=== PATIENT | female | born 1965 | race American Indian/Alaskan Native ===

== ENCOUNTER 2017-03-30 13:53 | Emergency (ER) | payer OTHER ==
[2017-03-30 13:59] VITALS: RESP 18; TEMP 98.7; BMI 36.2
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
[2017-03-30 16:36] VITALS: BP 123/75; PULSE 64; O2SAT 98
== END 2017-03-30 17:15 | disposition home or self-care (01) ==
LOC: ED 13:53
DX: R51 Headache (principal); M54.9 Dorsalgia, unspecified
CPT/HCPCS: 96372; 99285; J1885